=== PATIENT | male | born 1980 | race Caucasian/White ===

== ENCOUNTER 2022-07-28 22:01 | Emergency (ER) | payer SELFPAY ==
[2022-07-28 22:12] VITALS: BP 148/87; PULSE 98; RESP 16; TEMP 36.5; O2SAT 99; BMI 23.0
[2022-07-28 22:16] VITALS: BP 148/87; PULSE 98; RESP 16; O2SAT 99
--- NOTE | 2022-07-28 22:17 | W.ED.EAR ---
HPI - Ear Problem General: Chief complaint: Ear Stated complaint: Left Ear Pain Time Seen by Provider: 07/28/22 22:17 History of Present Illness: Mr Mtz is a 42-year-old gentleman without significant past medical history presenting to the emergency department for external ear pain. He notes a few days ago noticing some irritation on the external ear which she thought initially was just a pimple however since that time it is worsened. He denies direct trauma though does note frequent use of earplugs for his job. He endorses continued swelling of the external ear to the point that it is limited to his hearing. Denies fevers or signs of systemic illness. Intensity symptoms is moderate to severe. Course has worsened. No other specific changes in health, exacerbating, or alleviating factors identified. Location: left ear Duration: constant Severity: severe Relieving factors: nothing Exacerbating factors: palpation Discharge from ear: no Associated symptoms: Reports external ear pain; Denies ear or mastoid pain, fever(s), headache(s) or rhinorrhea Review of Systems General: Reports: 10 or more systems reviewed and unremarkable except in HPI and below Const: Denies: fever(s) ENMT: Denies: ear or mastoid pain Neuro: Denies: headache(s) PFSH ED PFSH: Medical History (Updated 07/28/22 @ 23:33 by Jona Ann MD) No significant past medical history Surgical History (Updated 07/28/22 @ 23:33 by Jona Ann MD) No significant past surgical history Physical Exam Const: COMMON NORMALS: alert GENERAL APPEARANCE: cooperative and well developed HENMT: COMMON NORMALS: normocephalic and atraumatic HEAD & SCALP: normocephalic and atraumatic THROAT: posterior oropharynx normal OTHER: There is swelling with erythema and fluctuance in the region of the inferior antihelix, leonardo, antitragus. Erythema appears localized to this region. There is no mastoid tenderness or bony tenderness. There is narrowing and obscuration of the auditory canal secondary to mass effect. There is no drainage from the auditory canal, no crusting. No evidence of vesicular lesions or other rash. Eye: COMMON NORMALS: conjunctivae normal CONJUNCTIVA: Yes conjunctivae normal SCLERA: sclerae normal Neck/C-Spine: COMMON NORMALS: supple GENERAL: Yes trachea midline Resp: COMMON NORMALS: normal respiratory effort and clear to auscultation bilaterally EFFORT & INSPECTION: Yes able to speak in complete sentences AUSCULTATION: clear to auscultation bilaterally Cardio: COMMON NORMALS: regular rate and regular rhythm RATE: regular rate RHYTHM: regular rhythm Extremity: GENERAL: Yes normal exam except as noted and No edema Neuro: COMMON NORMALS: moves all extremities SENSORIUM/ORIENTATION: Yes alert and No Orientation impaired Psych: COMMON NORMALS: mental status grossly normal and Normal thought process present THOUGHT PROCESS: Normal thought process present Procedures Abscess I/D Site: other (L ear) Side (if applicable): left Local Anesthetic: lidocaine 1% Amount of anesthesia used (mL): 0.2 Technique: incised with #11 blade Amount of fluid expressed (mL): 5 Packing used?: none Course Vital Signs: Vital signs: Vital Signs Temperature 97.7 F 07/28/22 22:12 Pulse Rate 98 07/28/22 22:16 Respiratory Rate 16 07/28/22 22:16 Blood Pressure 148/87 07/28/22 22:16 Pulse Oximetry 99 07/28/22 22:16 Oxygen Delivery Me thod 07/28/22 22:16 MDM - Ear Medical Decision Making 42-year-old gentleman who is nondiabetic presenting with ear complaint. Exam as above concerning for perichondritis with possible abscess. There is no mastoid tenderness or evidence of deep spread/bony involvement. Patient is nontoxic and denies signs systemic illness. Given degree of fluctuance and distortion of anatomy I believe that this requires incision and drainage. Incision and drainage performed with roughly 5 mL of older appearing blood and some purulent drainage expressed. Cultures were obtained and sent for laboratory analysis. Patient had significant relief and anatomy distortion significantly improved, area is soft. Local irrigation performed. Plan to treat with antibiotics, first dose of ciprofloxacin given here. I will refer for ENT follow-up. The results of ED evaluation were discussed with the patient including prescriptions and/or symptomatic cares (if applicable) including appropriate and responsible use, followup plan, and return precautions. The patient verbalized understanding and felt safe for discharge. Medical Records I reviewed the patient's medical records. Lab Data I reviewed the patient's lab results. Discharge Plan Discharge Patient Disposition: Home Clinical Impression: Perichondritis of left ear, Abscess of external ear, left Condition: Stable Prescriptions: New ciprofloxacin HCl 750 mg tablet 750 mg PO DAILY Qty: 14 0RF oxycodone 5 mg tablet 5 mg PO Q4H PRN (Reason: pain) Qty: 10 0RF Discharge Orders: Discharge ED (Routine); Ordered 07/28/22 Ordered By: Jona Ann Discharge Diet: Usual diet Discharge Activity: Limit activity as instructed Patient Instructions: Ciprofloxacin (By mouth), Abscess Incision and Drainage (DC), Opioid Safety Activity Restrictions/Additional Instructions: Thank you for visiting the emergency department. You were seen and evaluated for ear pain and swelling. The most likely cause of your symptoms is infection and a hematoma/abscess was drained at bedside. Please keep the area clean and dry. I will prescribe antibiotics and message case management for follow-up with ENT. You may use jaop-ypt-qjyhjyw medications such as acetaminophen and ibuprofen for pain however please do not exceed the daily recommended dosage as listed on the packaging and please keep in mind that many namebrand medications contain the same active ingredients. Please avoid these medications if previously instructed to do so by another physician due to other underlying medical condition. I will prescribe oxycodone, use this cautiously as it is an opiate. Do not combine it with other sedating substances, do not operate machinery or vehicles while taking this medication, watch for signs of oversedation. Return to the emergency department for uncontrolled pain, fevers, increased redness or swelling, or anything else that you are concerned about and feel needs emergency department evaluation. Coding Level of Care Code ED Lead Technician for Rayo Berg
[2022-07-28] MEDS: oxyCODONE 5 mg IR Tab/Cap PO (22:46)
[2022-07-28] MEDS: lidocaine 1% INJ 10 mL (per mL) 20 ML INJECTION (23:15)
[2022-07-28] MEDS: ciprofloxacin 500 mg Tablet 750 MG PO (23:29)
[2022-07-28 23:39] VITALS: BP 111/66; PULSE 78; RESP 16
--- NOTE | 2022-07-29 11:12 | DCPLANNER ---
Addendum entered by Angela Martini 08/14/22 08:01: Patient had a follow up appointment scheduled with ENT - patient did not attend appointment. Addendum entered by Angela Martini 07/30/22 11:07: Patient has a follow up appointment scheduled for Sunday, July 31, 2022 at 10:[address] Dhillon at ENT. Addendum entered by Angela Martini 07/30/22 11:00: manager dairy called patients son, when patient was on the phone, cyanide case hardener transferred patient to the ENT clinic to schedule an appointment. Addendum entered by Angela Martini 07/30/22 10:55: manager dairy received the following message from the ENT clinic regarding follow up appointment: his patient has our hospital number we will be unable to contact him unless we can find out his number. Original Note: manager dairy had message to schedule a follow up appointment for patient with ENT. manager dairy sent patients information to the front office staff at ENT. Patients information will be printed and reviewed. Clinic will call patient with appointment information.
--- NOTE | 2022-08-07 10:18 | DCPLANNER ---
atm manager called patient due to no primary care physician - no answer at this time, phone is not accepting calls at this time
== END 2022-07-28 23:41 | disposition home or self-care (01) ==
PROVIDERS: Emergency Provider Emergency Medicine
DX: H61.002 Unspecified perichondritis of left external ear (principal); H60.02 Abscess of left external ear
CPT/HCPCS: 69000; 87070; 87075; 87205; 99283

== ENCOUNTER 2022-08-01 17:08 | Emergency (ER) | payer SELFPAY ==
[2022-08-01 17:17] VITALS: BP 170/81; PULSE 110; RESP 16; TEMP 36.7; O2SAT 98
--- NOTE | 2022-08-01 17:45 | ED_ITS ---
Documented by User: Bradley Rosa DO 08/02/22 05:59 HPI - Ear Problem General: Chief complaint: Ear Stated complaint: left ear abnormality Time Seen by Provider: 08/01/22 17:29 Source: patient Mode of arrival: ambulatory History of Present Illness: 42-year-old male presents emergency room with a auricular hematoma on the left. He was seen several days ago and had it incised and drained it has recurred now. They are concerned about any infection because some of the fluid drainage looks somewhat purulent culture was done culture grew out skin bacteria and scant amounts. He has been continue to take the antibiotic he has not reinjured the ear evidently this was spontaneous initially. MD Complaint: ear pain Location: left ear Duration: constant Severity: mild Relieving factors: nothing Exacerbating factors: nothing Discharge from ear: no Associated symptoms: Denies ear or mastoid pain, external ear pain, fever(s), headache(s), hearing loss, neck pain, rhinorrhea or tinnitus Treatment prior to arrival: none Review of Systems Const: Denies: fever(s), chills, fatigue or malaise ENMT: Denies: ear or mastoid pain or tinnitus Card: Denies: chest pain, edema, dyspnea on exertion or orthopnea Resp: Denies: dyspnea, productive cough or non-productive cough GI: Denies: abdominal pain, nausea, vomiting, hematemesis, coffee ground emesis, diarrhea, constipation, bloating, hematochezia or melena : Denies: flank pain, dysuria, urinary frequency or urinary urgency Musc: Denies: neck pain Skin/Breast: Denies: rash or pruritus Neuro: Denies: headache(s) PFS ED PFSH: Medical History No significant past medical history Surgical History No significant past surgical history Physical Exam Const: GENERAL APPEARANCE: cooperative and comfortable ORIENTATION/CONSCIOUSNESS: Yes awake, Yes oriented to person, Yes oriented to place and Yes oriented to time HENMT: OTHER: Fluctuant hematoma left auricle. Encompasses mostly the inner auricle. No air induration no active drainage no erythema dried eschar from previous drainage Neuro: SENSORIUM/ORIENTATION: Yes oriented to person, Yes oriented to place and Yes oriented to time Skin: COMMON NORMALS: no rashes or lesions noted GENERAL SKIN EXAM: no rashes or lesions noted Course Vital Signs: Vital signs: Vital Signs Temperature 98.1 F 08/01/22 17:17 Pulse Rate 110 H 08/01/22 18:36 Respiratory Rate 16 08/01/22 18:36 Blood Pressure 170/81 08/01/22 18:36 Pulse Oximetry 98 08/01/22 18:36 MDM - Ear Medical Decision Making Care signed out to Dr. Barajas at change of shift. See final notes for diagnosis and disposition. Medical Records I reviewed the patient's medical records. Lab Data I reviewed the patient's lab results. Discharge Plan Discharge Patient Disposition: Home Clinical Impression: Ear hematoma, left Condition: Stable Prescriptions: No Action ciprofloxacin HCl 750 mg tablet 750 mg PO DAILY Qty: 14 0RF oxycodone 5 mg tablet 5 mg PO Q4H PRN (Reason: pain) Qty: 10 0RF Discharge Orders: Discharge ED (Routine); Ordered 08/01/22 Ordered By: Sharath Barajas Referrals: Paramjit Dhillon MD [Physician] - 1-3 days Discharge Diet: Advance as tolerated Discharge Activity: Resume usual activity Patient Instructions: Hematoma (ED), Opioid Safety Activity Restrictions/Additional Instructions: suture removl in 1 week Coding Level of Care Code ED Physicist Nuclear for Chg Fwd Documented by User: Sharath Barajas MD 08/01/22 18:37 HPI - Ear Problem General: Chief complaint: Ear Stated complaint: left ear abnormality Time Seen by Provider: 08/01/22 17:29 [facility] ED PFSH: Medical History No significant past medical history Surgical History No significant past surgical history Procedures Abscess I/D Site: other (ear hematoma) Side (if applicable): left Local Anesthetic: bupivacaine 0.5% Amount of anesthesia used (mL): 5 Technique: incised with #11 blade Course Vital Signs: Vital signs: Vital Signs Temperature 98.1 F 08/01/22 17:17 Pulse Rate 110 H 08/01/22 18:36 Respiratory Rate 16 08/01/22 18:36 Blood Pressure 170/81 08/01/22 18:36 Pulse Oximetry 98 08/01/22 18:36 MDM - Ear Medical Decision Making Care signed out to Dr. Barajas at change of shift. See final notes for diagnosis and disposition. Patient presents here with her auricle hematoma its reaccumulated I did drain it again placed a pressure dressing on both sides of the ear sutured in place with three 4-0 sutures. Placed Curlex on it as well he is to follow-up with ENT and return here in 1 week to have the sutures removed. Discharge Plan Discharge Patient Disposition: Home Clinical Impression: Ear hematoma, left Condition: Stable Prescriptions: No Action ciprofloxacin HCl 750 mg tablet 750 mg PO DAILY Qty: 14 0RF oxycodone 5 mg tablet 5 mg PO Q4H PRN (Reason: pain) Qty: 10 0RF Discharge Orders: Discharge ED (Routine); Ordered 08/01/22 Ordered By: Sharath Barajas Referrals: Paramjit Dhillon MD [Physician] - 1-3 days Discharge Diet: Advance as tolerated Discharge Activity: Resume usual activity Patient Instructions: Hematoma (ED), Opioid Safety Activity Restrictions/Additional Instructions: suture removl in 1 week Coding Level of Care Code ED Physicist Nuclear for Rayo Berg
[2022-08-01 18:36] VITALS: BP 170/81; PULSE 110; RESP 16; O2SAT 98
--- NOTE | 2022-08-02 10:15 | DCPLANNER ---
manager urology had message to schedule a follow up appointment for patient with ENT. manager urology made a referral for patient on last ER visit - patient has an appointment scheduled for 08.12.22 at ENT.
--- NOTE | 2022-08-07 14:25 | DCPLANNER ---
real estate office manager called patient due to no primary care physician - no answer at this time, phone is not accepting calls at this time
--- NOTE | 2022-08-08 10:55 | DCPLANNER ---
senior production manager unable to call patient, phone number is [phone] (the hospital phone number)
== END 2022-08-01 18:42 | disposition home or self-care (01) ==
PROVIDERS: Emergency Provider Emergency Medicine
DX: H61.122 Hematoma of pinna, left ear (principal)
CPT/HCPCS: 99283

== ENCOUNTER 2023-06-01 14:02 | Emergency (ER) | payer MEDICAID, SELFPAY ==
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
[2023-06-01 14:08] VITALS: BP 164/91; PULSE 112; RESP 12; TEMP 36.7; O2SAT 97; BMI 21.7
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
[2023-06-01] MEDS: HYDROcodone-acetaminophen 7.5-325 mg Tablet 1 TAB PO (15:36)
[2023-06-01 15:56] VITALS: BP 164/91; PULSE 95; RESP 12; TEMP 36.7; O2SAT 97
--- NOTE | 2023-06-02 08:17 | DCPLANNER ---
Message was sent to podiatry on 06/02/23 at 0817. Clinic to contact patient
== END 2023-06-01 15:59 | disposition home or self-care (01) ==
PROVIDERS: Emergency Provider Nurse Practitioner Family
DX: S92.001A Unspecified fracture of right calcaneus, initial encounter for closed fracture (principal); X50.1XXA Overexertion from prolonged static or awkward postures, initial encounter
CPT/HCPCS: 73590; 73610; 73630; 73700; 99284; E0114

== ENCOUNTER → 2023-06-17 15:41 | Outpatient (BNVA) | payer MEDICAID, SELFPAY | PROVIDERS: Visit Provider Podiatrist Foot & Ankle Surgery | DX: S92.014D Nondisplaced fracture of body of right calcaneus, subsequent encounter for fracture with routine healing; X58.XXXD Exposure to other specified factors, subsequent encounter | CPT/HCPCS: 73650 ==

== ENCOUNTER 2023-06-17 16:27 | Outpatient (CLI) | payer MEDICAID, SELFPAY | END 2023-06-17 16:28 | disposition home or self-care (01) | LOC: SPT 16:29 | PROVIDERS: Visit Provider Podiatrist Foot & Ankle Surgery | DX: Z46.89 Encounter for fitting and adjustment of other specified devices (principal); S92.001D Unspecified fracture of right calcaneus, subsequent encounter for fracture with routine healing; X58.XXXD Exposure to other specified factors, subsequent encounter | CPT/HCPCS: 97760; L4361 ==

== ENCOUNTER 2024-02-27 02:46 | Emergency (ER) | payer MEDICAID, SELFPAY ==
[2024-02-27 02:48] VITALS: BP 154/97; PULSE 91; RESP 18; TEMP 37; O2SAT 98; BMI 21.7
[2024-02-27 02:53] VITALS: BP 154/97; PULSE 101; O2SAT 98
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
[2024-02-27] MEDS: ondansetron 2 mg/ML SDV 2 mL 4 MG IVP (03:23)
[2024-02-27 03:42] VITALS: BP 140/86; PULSE 92; O2SAT 93
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
[2024-02-27] MEDS: propofol 10 mg/mL SDV 20 mL 80 MG IVP (03:59)
[2024-02-27] MEDS: HYDROcodone-acetaminophen 10-325 mg Tablet 2 TAB PO (04:18)
--- NOTE | 2024-02-27 04:19 | PC.NURSE ---
1 tab of hydrocodone sent home with patient per MD Durham. One tab given before discharge.
[2024-02-27 04:59] VITALS: BP 155/100; PULSE 86; O2SAT 97
== END 2024-02-27 04:30 | disposition home or self-care (01) ==
PROVIDERS: Emergency Provider Emergency Medicine
DX: S52.502A Unspecified fracture of the lower end of left radius, initial encounter for closed fracture (principal); S09.90XA Unspecified injury of head, initial encounter; W51.XXXA Accidental striking against or bumped into by another person, initial encounter
CPT/HCPCS: 25605; 70450; 73090; 73100; 96374; 99152; 99285; J2405; J2704

== ENCOUNTER → 2024-03-02 11:02 | Outpatient (BNVA) | payer MEDICAID, SELFPAY | PROVIDERS: Visit Provider Physician Assistant | DX: S52.502A Unspecified fracture of the lower end of left radius, initial encounter for closed fracture (principal); W03.XXXA Other fall on same level due to collision with another person, initial encounter | CPT/HCPCS: 73110 ==

== ENCOUNTER 2024-03-03 10:35 | Day surgery (SDC) | payer MEDICAID, SELFPAY ==
[2024-03-03] VITALS (11 sets, daily range): BP systolic 147–196; BP diastolic 93–118; PULSE 68–96; RESP 9–24; TEMP 36.4–36.9; O2SAT 96–100; BMI 22.4
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
[2024-03-03] MEDS: scopolamine 1.5 Patch 1 PATCH TRANSDERMA (11:23)
[2024-03-03] MEDS: ketorolac 30 mg/mL INJ IVP (11:24)
--- NOTE | 2024-03-03 11:31 | W.PM.OPSUD ---
Surgery/Procedure H&P Update DATE OF PROCEDURE: March 03, 2024 DATE H&P PERFORMED: 03/02/24 H&P UPDATE INFORMATION: I have reviewed H&P completed within last 30 days, I have examined patient prior to procedure and No changes to prior documentation CHANGES TO PREVIOUS DOCUMENTATION: No changes in HPI since office visit yesterday. Detailed out the procedure for left distal radius open reduction internal fixation. He understands the ins and outs procedure the risk benefits complication alternatives surgery and through shared decision-making elects proceed with surgical intervention. All questions been answered at this time. We did talk about the ulnar styloid small fracture fragment talked about most often when this is just left alone we will observe and is stressed the DRUJ joint intraoperatively he understands agrees with current plan. All questions answered. PREOP DIAGNOSIS: Left distal radius fracture and ulnar styloid fracture PRIMARY INDICATION FOR PROCEDURE: Left distal radius fracture and ulnar styloid fracture PLANNED PROCEDURE: Operation Date: 03/03/24 12:20 Proposed Procedures p ORIF Wrist ORIF Distal Radius(Left) - Aneesh Mulligan DO
--- NOTE | 2024-03-03 11:44 | ANES.PREANE2 ---
Pre-Anesthetic Assessment Height/Weight: Height 1.83 m Weight 74.843 kg Preop Diagnosis: Left distal radius fracture and ulnar styloid fracture Operation Date: 03/03/24 12:20 Proposed Procedures p ORIF Wrist ORIF Distal Radius(Left) - Aneesh Mulligan DO Familial anesthetic complications: None Was Beta Ashlyn taken within 24 hours: N/A Was Clonidine taken within 24 hours: N/A Last intake: Intake Last Liquid Date 03/02/24 Last Liquid Time 23:30 Last Solid Date 03/02/24 Last Solid Time 21:30 Social No alcohol and No tobacco Exam alert, oriented x 3, clear to auscultation bilaterally and regular rate & rhythm Airway Mallampati: Class II Dentition: full Pulmonary None reported Anesthetic Plan ASA status: 2 Anesthesia: General and Regional (specify below) Risk of > 500 ml blood loss (7ml/kg in children): No Medications/Allergies Home Medications Medication Instructions Recorded Confirmed Last Taken Type CAM walker #1 ea 06/17/23 01/09/24 Unknown Rx Allergies Allergy/AdvReac Type Severity Reaction Status Date / Time No Known Allergies Allergy Verified 03/02/24 10:39 [facility] Anesthesia Medical History No significant past medical history Surgical History No significant past surgical history Social History Smoking and tobacco/nicotine status: current every day tobacco/nicotine user Data Anesthesia Cardiac Studies: No Data to Display
[2024-03-03] MEDS: acetaminophen 1,000 MG/100 ML PIGGYBACK 400 MG IV (11:45)
--- NOTE | 2024-03-03 11:45 | ANES.PROC ---
Anesthesia Procedures Procedure/Date: 03/03/24 Nerve Block ^: Nerve Block 1: Main Anesthesia: general anesthesia Time Out Performed: Yes Consent: requested by attending/covering physician, from patient, from other, risks and benefits reviewed and patient agrees to proceed Nerve block location: axillary (L) Anesthesia monitors applied: pulse oximetry, EKG, BP cuff and oxygen Nerve block position: supine Anesthetic Used: ropivicaine 0.5% (30 ml) and with decadron (4 mg) Ultrasound used to: recognize landmarks and visualize and ID brachial plexus Nerve Stimulator Used?: No Interscalene/Femoral BLK: 2 stimuplex 22 g needle used for position and inplane approach, visualize local anesthetic spread and no vascular puncture identified Injection: neg aspiration of heme Patient Tolerated Procedure: well Complications: none
[2024-03-03] MEDS: sodium chloride 0.9% 1,000 ML 30 ML IV (11:46)
[2024-03-03] MEDS: ceFAZolin 2,000 MG in sodium chloride 0.9% (plus) 50 ML 100 MG IV (12:39)
[2024-03-03] MEDS: fentaNYL 50 mcg/mL INJ 2mL IVP (14:30)
--- NOTE | 2024-03-03 14:59 | W.PM.BPON ---
Date of Procedure: 03/03/2024 Surgeon: Aneesh Mulligan DO Senior Procurement Specialist(s): None Procedure(s) performed: Left distal radius open reduction internal fixation (greater than 4 part intra-articular) Findings of the procedure(s): Greater than 4 part intra-articular left distal radius fracture underwent ORIF as planned without issues or complications patient tolerated procedure well. Estimated blood loss: 10 mL Specimen(s) removed: None Post-operative diagnosis: Comminuted left distal radius four-part intra-articular with associated left ulnar styloid fracture
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
== END 2024-03-03 15:40 | disposition home or self-care (01) ==
PROVIDERS: Visit Provider Student in an Organized Health Care Education/Training Program
PROC: (CPT 25609; principal; 2024-03-03 12:20)
DX: S52.572A Other intraarticular fracture of lower end of left radius, initial encounter for closed fracture (principal); W03.XXXA Other fall on same level due to collision with another person, initial encounter; F17.200 Nicotine dependence, unspecified, uncomplicated
CPT/HCPCS: 25609; 73090; 76000; C1713; J0131; J0690; J1100; J1885; J2250; J2405; J2704; J2795; J3010; J7030

== ENCOUNTER → 2024-03-18 13:24 | Outpatient (BNVA) | payer MEDICAID, SELFPAY | PROVIDERS: Visit Provider Physician Assistant | DX: S52.502A Unspecified fracture of the lower end of left radius, initial encounter for closed fracture (principal); S52.502D Unspecified fracture of the lower end of left radius, subsequent encounter for closed fracture with routine healing; Z98.890 Other specified postprocedural states; X58.XXXD Exposure to other specified factors, subsequent encounter | CPT/HCPCS: 73110 ==

== ENCOUNTER → 2024-04-06 14:01 | Outpatient (BNVA) | payer MEDICAID, SELFPAY | PROVIDERS: Visit Provider Physician Assistant | DX: Z98.890 Other specified postprocedural states (principal); Z87.81 Personal history of (healed) traumatic fracture; S52.502D Unspecified fracture of the lower end of left radius, subsequent encounter for closed fracture with routine healing; X58.XXXD Exposure to other specified factors, subsequent encounter | CPT/HCPCS: 73110 ==

== ENCOUNTER → 2024-05-04 08:58 | Outpatient (BNVA) | payer MEDICAID, SELFPAY | PROVIDERS: Visit Provider Physician Assistant | DX: Z98.890 Other specified postprocedural states (principal); S52.502D Unspecified fracture of the lower end of left radius, subsequent encounter for closed fracture with routine healing; X58.XXXD Exposure to other specified factors, subsequent encounter | CPT/HCPCS: 73110 ==

== ENCOUNTER 2024-11-28 19:48 | Emergency (ER) | payer MEDICAID, SELFPAY ==
[2024-11-28 19:48] VITALS: BP 166/108; PULSE 105; RESP 22; TEMP 36.8; O2SAT 96; BMI 20.9
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
[2024-11-28] MEDS: iohexol 350 mg/mL 500 mL Btl (per mL) IV (20:08)
[2024-11-28 20:49] LABS: Hematocrit 42.8 % (37-53); Hemoglobin 15.10 g/dL (11.27-16.99); Mean Corpuscular HGB Conc 35.3 g/dL (30-55); Mean Corpuscular Hemoglobin 32.3 pg (27-33); Mean Corpuscular Volume 91.6 fl (82-101); Nucleated Red Blood Cells % 0 %; Platelet Count 245 10^3/cmm (157-399); Red Blood Count 4.67 10^6/uL (3.85-5.65); White Blood Count 13.97 10^3/uL (3.29-11.43)
[2024-11-28 20:57] VITALS: BP 150/92; PULSE 89; RESP 16; O2SAT 97
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
[2024-11-28 21:08] LABS: Alanine Aminotransferase 25 U/L (0-41); Albumin Level 4.4 g/dL (3.5-5.2); Alcohol Level 179 mg/dL (0-10); Alkaline Phosphatase 115 U/L (40-130); Anion Gap 18.1 (5-19); Blood Urea Nitrogen 3 mg/dL (6-20); Calcium 8.9 mg/dL (8.5-10.5); Carbon Dioxide 22 mmol/L (22-29); Chloride 105 mmol/L (98-107); Creatinine Clr Calc Pharmacy 124.4713; Globulin 2.6 g/dL (1.3-4.6); Glucose 108 mg/dL (65-115); Osmolality Calculated 289 mOsm/kg (285-295); Potassium 4.1 mmol/L (3.5-5.1); Sodium 141 mmol/L (136-145); Total Protein 7.0 g/dL (6.6-8.7)
[2024-11-28 21:09] LABS: Aspartate Amino Transferase 27 U/L (0-40)
[2024-11-28 21:30] VITALS: BP 147/86; PULSE 102; RESP 17; O2SAT 97
[2024-11-28] MEDS: fentaNYL 50 mcg/mL INJ 2mL IVP (21:39)
[2024-11-28] MEDS: ondansetron 2 mg/ML SDV 2 mL 4 MG IVP (21:42)
[2024-11-28 22:18] VITALS: BP 145/90; PULSE 89; RESP 17; O2SAT 97
== END 2024-11-28 22:10 | disposition short-term general hospital (02) ==
PROVIDERS: Emergency Provider Physician Assistant
DX: S92.125A Nondisplaced fracture of body of left talus, initial encounter for closed fracture (principal); S82.841A Displaced bimalleolar fracture of right lower leg, initial encounter for closed fracture; S02.32XA Fracture of orbital floor, left side, initial encounter for closed fracture; V89.2XXA Person injured in unspecified motor-vehicle accident, traffic, initial encounter; F10.920 Alcohol use, unspecified with intoxication, uncomplicated; Y90.6 Blood alcohol level of 120-199 mg/100 ml; S02.2XXA Fracture of nasal bones, initial encounter for closed fracture
CPT/HCPCS: 36415; 70450; 70486; 71260; 72125; 73590; 73610; 74177; 80053; 80307; 85025; 96374; 96375; 99285; J2405; J3010; J7030

== ENCOUNTER → 2025-02-22 10:11 | Outpatient (BNVA) | payer MEDICAID, SELFPAY | PROVIDERS: Visit Provider Podiatrist Foot & Ankle Surgery | DX: Z98.890 Other specified postprocedural states (principal); S92.101D Unspecified fracture of right talus, subsequent encounter for fracture with routine healing; V48.5XXD Car driver injured in noncollision transport accident in traffic accident, subsequent encounter | CPT/HCPCS: 73610 ==